=== PATIENT | female | born 1945 | race Caucasian/White ===

== ENCOUNTER 2017-08-16 21:35 | Inpatient (IN) | payer OTHER ==
[~2017-08-16] VITALS: Ht 157.5 cm; Wt 51.5 kg
[2017-08-16 22:39] LABS: BASOPHIL % 0.4 % (0-2); PLATELET COUNT 312 x10^3mcL (130-400); RED CELL DISTRIBUTION WIDTH 14.4 % (11.5-14.5)
[2017-08-16 23:09] LABS: ALKALINE PHOSPHATASE 98 U/L (46-116); ALT/SGPT 27 U/L (14-59); AST/SGOT 20 U/L (15-37); BILIRUBIN TOTAL 0.31 mg/dL (0.20-1.00); CALCIUM 9.5 mg/dL (8.5-10.1); CARBON DIOXIDE 27.9 mmol/L (21-32); CHLORIDE SERUM 98 mmol/L (98-107); CREATININE SERUM 0.8 mg/dL (0.6-1.0); FREE T4 0.95 ng/dL (0.76-1.46); LIPASE 1019 IU/L (73-393); POTASSIUM SERUM 4.2 mmol/L (3.5-5.1); SODIUM SERUM 134 mmol/L (136-145); TOTAL PROTEIN, SERUM 6.8 g/dL (6.4-8.2)
[2017-08-16 23:12] LABS: ALBUMIN 3.3 g/dL (3.4-5.0)
[2017-08-16 23:13] LABS: GLUCOSE SERUM 479 mg/dL (74-106)
[2017-08-16 23:20] LABS: OSMOLALITY SERUM 313 mOsm/kg (278-298)
[2017-08-16 23:47] LABS: microscopic required? NO
[2017-08-17 00:07] LABS: UA SPECIFIC GRAVITY <=1.005 (1.005-1.035); urine erythrocyte NEGATIVE (NEGATIVE)
[2017-08-17 00:16] LABS: AMPHETAMINE QUAL UR NONE DETECTED (See below)
[2017-08-17] MEDS ORDERED: KEFLEX500 M1 (00:47)
[2017-08-17] MEDS ORDERED: SEROQUEL25 MG PO (00:47)
[2017-08-17] MEDS ORDERED: METFORMIN HCL1000 MG (00:47)
[2017-08-17 02:27] VITALS: BP 145/68
[2017-08-17 03:12] LABS: MAGNESIUM 2.1 mg/dL (1.8-2.4); PHOSPHOROUS 3.3 mg/dL (2.5-4.9)
[2017-08-17 03:15] LABS: FREE T4 0.96 ng/dL (0.76-1.46); FREE THYROXINE INDEX 2.2 ug/dL (1.4-4.5); T4(THYROXINE) 6.8 ug/dL (4.7-13.3)
[2017-08-17 04:24] LABS: T3 TOTAL 0.73 ng/mL
[2017-08-17 06:16] VITALS: BP 120/64
[2017-08-17 08:22] VITALS: BP 133/69
[2017-08-17 12:07] VITALS: BP 140/62
[2017-08-17 18:13] VITALS: BP 141/58
[2017-08-17 20:42] VITALS: BP 125/65
[2017-08-18 06:12] VITALS: BP 136/68
[2017-08-18 08:05] VITALS: BP 131/54
[2017-08-18 13:05] VITALS: BP 129/61
[2017-08-18 16:56] VITALS: BP 139/64
[2017-08-18 19:40] VITALS: BP 125/53
[2017-08-19 05:46] VITALS: BP 139/58
[2017-08-19 06:19] LABS: BASOPHIL % 0.6 % (0-2); PLATELET COUNT 307 x10^3mcL (130-400)
[2017-08-19 06:26] LABS: RED CELL DISTRIBUTION WIDTH 14.6 % (11.5-14.5)
[2017-08-19 06:57] LABS: CALCIUM 9.5 mg/dL (8.5-10.1); CARBON DIOXIDE 29.1 mmol/L (21-32); CHLORIDE SERUM 103 mmol/L (98-107); CREATININE SERUM 0.7 mg/dL (0.6-1.0); GLUCOSE SERUM 266 mg/dL (74-106); MAGNESIUM 1.8 mg/dL (1.8-2.4); PHOSPHOROUS 3.5 mg/dL (2.5-4.9); POTASSIUM SERUM 4.3 mmol/L (3.5-5.1); SODIUM SERUM 140 mmol/L (136-145)
[2017-08-19 07:55] VITALS: BP 136/64
[2017-08-19 16:52] VITALS: BP 129/66
[2017-08-19 19:43] VITALS: Ht 157.5 cm; Wt 51.5 kg
[2017-08-19 20:37] VITALS: BP 131/48
[2017-08-20 06:30] VITALS: BP 131/55
[2017-08-20 09:21] VITALS: BP 135/62
[2017-08-20 16:51] VITALS: BP 135/62
[2017-08-20] MEDS ORDERED: BACO TOP (16:57)
[2017-08-20] MEDS ORDERED: APLICARE ANTIS118 M3 TOP (16:57)
[2017-08-20 17:39] VITALS: BP 143/73
[2017-08-20 21:10] VITALS: BP 134/66
[2017-08-21 05:29] VITALS: BP 123/55
[2017-08-21 08:21] VITALS: BP 126/62
[2017-08-21 11:01] VITALS: BP 126/62
== END 2017-08-21 11:54 | disposition home health service (06) | DRG 637 ==
LOC: ED 21:35 → MU 08-17 00:22 → DU 08-17 00:22 → MU 08-18 20:08
PROVIDERS: Emergency Medicine; Internal Medicine
DX: E11.65 Type 2 diabetes mellitus with hyperglycemia (principal); G93.41 Metabolic encephalopathy; N17.0 Acute kidney failure with tubular necrosis; K85.90 Acute pancreatitis without necrosis or infection, unspecified; E44.1 Mild protein-calorie malnutrition; D68.59 Other primary thrombophilia; F31.9 Bipolar disorder, unspecified; Z68.20 Body mass index [BMI] 20.0-20.9, adult; Z85.3 Personal history of malignant neoplasm of breast; Z79.84 Long term (current) use of oral hypoglycemic drugs
CPT/HCPCS: 82962; 83880; 84439; G0480; J7030; Q0092